=== PATIENT | male | born 1975 | race Two or more races ===

== ENCOUNTER 2017-07-04 10:03 | Emergency (ER) | payer OTHER, SELFPAY ==
[2017-07-04 10:08] VITALS: BP 118/78; PULSE 103; RESP 18; TEMP 37.6; O2SAT 95; BMI 22.6
--- NOTE | 2017-07-04 10:22 | HMH.EDGENADL ---
ED Disposition Clinical Impression: Acute bronchitis, Viral syndrome Disposition: Home, Self-Care Condition on Discharge: Good Additional Instructions: 1- The patient to start on antibiotic amoxicillin like the one his daughter used and gotten better. 2- He was given ibuprofen for body aches and Tessalon. Follow up with the primary care physician Dr. Hassan in the morning. 3-basic hygiene and use protective mask as he is the fourth person who gets sick in the family. 4-to return if not better. Prescriptions: Benzonatate [Tessalon Perle 100mg Cap] 100 mg PO Q4HP PRN #21 cap PRN Reason: Cough Ibuprofen [Motrin 600mg Tablet] 600 mg PO Q8HP PRN #21 tab PRN Reason: Moderate Pain Amoxicillin [Amoxicillin 500mg Cap] 500 mg PO TID #30 cap Referrals: Moises Hassan MD [Staff Physician] - - Critical Care Critical Care Time: No Attestation: On , the high probability of a clinically significant, sudden or life threatening deterioration of the following system(s) required my full and direct attention, intervention and personal management. The time I documented below is in addition to time spent performing reported procedures but includes the following listed in this critical care notation. Medical Decision Making - Medical Records Medical records reviewed: Yes: I reviewed the patient's medical records. Vital Signs: 07/04/17 10:08 Temperature 99.6 F Temperature Source Oral Pulse Rate [Right Brachial] 103 H Respiratory Rate 18 Blood Pressure [Right Arm] 118/78 Blood Pressure Mean [Right Arm] 91 Blood Pressure Source [Right Arm] Automatic Cuff Blood Pressure Position [Right Arm] Sitting 02 Sat by Pulse Oximetry 95 Oxygen Delivery Method Room Air - Ceasar Inquiry Pt receiving controlled substance: No Ceasar was queried for this patient: No Medical Decision Making Narrative: Had a discussion with the patient that this he is having what seems to be respiratory versus viral infection, it is past the effective period to use antiviral medication after 4 days of illness. Will cover him with antibiotics for secondary bacterial infection. He is to follow-up with a primary care physician [place] General Adult HPI - General Chief complaint: Shortness of Breath/Dyspnea Stated complaint: congested Mode of Arrival: Ambulatory Source of Information: Patient Limitations: No Limitations Description of Symptoms (Recalled from ER Triage Doc. 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 His daughter developed similar symptoms a week ago and she was seen by the deputy sheriff custody and was given antibiotics and she is getting better. He is the fourth person to get sick in the family . He started developing sinus congestion nonproductive cough and body aches 4 days ago. He denies having shortness of air, palpitations, hemoptysis, nausea, vomiting or diarrhea. He is here for antibiotics and cough medication. Onset (ago): day(s) (4 days.) Location: chest Severity: mild Quality: aching (Feels achy all over. ) Consistency: constant Relieving factors: other (Feels better with [id number] medications.) Exacerbating factors: none (Nonproductive cough. ) Associated symptoms: denies other symptoms (As described in HPI. ) - Related Data Previous Rx's Medication Instructions Recorded Amoxicillin [Amoxicillin 500mg 500 mg PO TID #30 cap 07/04/17 Cap] Benzonatate [Tessalon Perle 100mg 100 mg PO Q4HP PRN #21 cap 07/04/17 Cap] Ibuprofen [Motrin 600mg 600 mg PO Q8HP PRN #21 tab 07/04/17 Tablet] Allergies Allergy/AdvReac Type Severity Reaction Status Date / Time No Known Allergies Allergy Unverified 06/01/17 14:11 [facility] History I have reviewed the patient's past medical history: Yes - *Social History Smoking Status: Never smoker Alcohol Intake: never - Psychiatric History Expresses t
--- NOTE | 2017-07-04 10:25 | ED_ITS ---
ED Disposition Clinical Impression: Acute bronchitis, Viral syndrome Disposition: Home, Self-Care Condition on Discharge: Good Additional Instructions: 1- The patient to start on antibiotic amoxicillin like the one his daughter used and gotten better. 2- He was given ibuprofen for body aches and Tessalon. Follow up with the primary care physician Dr. Hassan in the morning. 3-basic hygiene and use protective mask as he is the fourth person who gets sick in the family. 4-to return if not better. Prescriptions: Benzonatate [Tessalon Perle 100mg Cap] 100 mg PO Q4HP PRN #21 cap PRN Reason: Cough Ibuprofen [Motrin 600mg Tablet] 600 mg PO Q8HP PRN #21 tab PRN Reason: Moderate Pain Amoxicillin [Amoxicillin 500mg Cap] 500 mg PO TID #30 cap Referrals: Moises Hassan MD [Staff Physician] - - Critical Care Critical Care Time: No Attestation: On , the high probability of a clinically significant, sudden or life threatening deterioration of the following system(s) required my full and direct attention, intervention and personal management. The time I documented below is in addition to time spent performing reported procedures but includes the following listed in this critical care notation. Medical Decision Making - Medical Records Medical records reviewed: Yes: I reviewed the patient's medical records. Vital Signs: 07/04/17 10:08 Temperature 99.6 F Temperature Source Oral Pulse Rate [Right Brachial] 103 H Respiratory Rate 18 Blood Pressure [Right Arm] 118/78 Blood Pressure Mean [Right Arm] 91 Blood Pressure Source [Right Arm] Automatic Cuff Blood Pressure Position [Right Arm] Sitting 02 Sat by Pulse Oximetry 95 Oxygen Delivery Method Room Air - Ceasar Inquiry Pt receiving controlled substance: No Ceasar was queried for this patient: No Medical Decision Making Narrative: Had a discussion with the patient that this he is having what seems to be respiratory versus viral infection, it is past the effective period to use antiviral medication after 4 days of illness. Will cover him with antibiotics for secondary bacterial infection. He is to follow-up with a primary care physician [place] General Adult HPI - General Chief complaint: Shortness of Breath/Dyspnea Stated complaint: congested Mode of Arrival: Ambulatory Source of Information: Patient Limitations: No Limitations Description of Symptoms (Recalled from ER Triage Doc. 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 His daughter developed similar symptoms a week ago and she was seen by the radiologic therapist and was given antibiotics and she is getting better. He is the fourth person to get sick in the family . He started developing sinus congestion nonproductive cough and body aches 4 days ago. He denies having shortness of air, palpitations, hemoptysis, nausea, vomiting or diarrhea. He is here for antibiotics and cough medication. Onset (ago): day(s) (4 days.) Location: chest Severity: mild Quality: aching (Feels achy all over. ) Consistency: constant Relieving factors: other (Feels better with [id number] medications.) Exacerbating factors: none (Nonproductive cough. ) Associated symptoms: denies other symptoms (As described in HPI. ) - Related Data Previous Rx's Medication Instructions Recorded Amoxicillin [A
== END 2017-07-04 10:45 | disposition home or self-care (01) ==
PROVIDERS: Emergency Provider Emergency Medicine
DX: J20.9 Acute bronchitis, unspecified (principal); B34.9 Viral infection, unspecified
CPT/HCPCS: 99282

== ENCOUNTER 2018-11-14 19:29 | Emergency (ER) | payer OTHER, SELFPAY ==
[2018-11-14 19:30] VITALS: BP 136/82; PULSE 71; RESP 16; TEMP 36.7; O2SAT 99; BMI 19.8
[2018-11-14 19:34] VITALS: BP 136/82; PULSE 71; RESP 16; TEMP 36.7; O2SAT 99; BMI 19.8
--- NOTE | 2018-11-14 20:15 | HMH.EDEYEP ---
ED Disposition Clinical Impression: Conjunctivitis Qualifiers: Conjunctivitis type: unspecified Laterality: bilateral Qualified Code(s): H10.9 - Unspecified conjunctivitis Disposition: Home, Self-Care Condition on Discharge: Good Instructions: DI for Eye Pain Additional Instructions: use eye drops and see eye center in [place] Referrals: Provider,Reji, [Primary Care Provider] - - Critical Care Critical Care Time: No Attestation: On 11/14/18, the high probability of a clinically significant, sudden or life threatening deterioration of the following system(s) required my full and direct attention, intervention and personal management. The time I documented below is in addition to time spent performing reported procedures but includes the following listed in this critical care notation. Medical Decision Making - Ceasar Inquiry Pt receiving controlled substance: No Vital Signs: 11/14/18 19:30 11/14/18 19:34 Temperature 98.0 F 98.0 F Temperature Source Oral Oral Pulse Rate [Right Brachial] 71 71 Respiratory Rate 16 16 Blood Pressure [Right Arm] 136/82 136/82 Blood Pressure Mean [Right Arm] 100 100 Blood Pressure Source [Right Arm] Manual Cuff/ Doppler Manual Cuff/ Doppler Blood Pressure Position [Right Arm] Sitting Sitting 02 Sat by Pulse Oximetry 99 99 Oxygen Delivery Method Room Air Room Air Eye Problem HPI - General Chief complaint: Eye Problems Stated complaint: both eyes red and hurting Time Seen by Provider: 11/14/18 20:00 Mode of Arrival: Ambulatory Source of Information: Patient Limitations: Language Barrier Description of Symptoms (Recalled from ER Triage Doc. by RN): pt states working with metal and metal pieces flew back hitting both eyes. pt states left eye is more painful than right - History of Present Illness HPI Narrative: possible fb lt eye with reddness - and sl itchy- no visual loss chief complaint: eye redness, foreign body Onset (ago): hour(s) Onset description: gradual Duration: constant Location: both eyes Eye Symptoms: foreign body sensation Place: home Mechanism: none Severity: moderate Treatments Prior to Arrival: none - Related Data Home Medications Medication Instructions Recorded Confirmed No Known Home Medications 11/14/18 11/14/18 Allergies Allergy/AdvReac Type Severity Reaction Status Date / Time No Known Allergies Allergy Unverified 06/01/17 14:11 [facility] History - Hepatitis A Screen Drug use history?: No High risk sexual behaviors?: No History of sexually transmitted infection?: No Currently employed?: No Childcare worker?: No Do you have indoor plumbing?: Yes Do you have electricity?: Yes Attestation statement:: This patient has been screened for Hepatitis A risk factors. I have reviewed the patient's past medical history: Yes Medical History: Denies:: Cancer, Diabetes Mellitus Type 1, Diabetes Mellitus Type 2, MRSA Amputation: No Fractures: No - Social History Smoking Status: Never smoker Alcohol Intake: never Occupational Status: employed Housing: house - Psychiatric History Expresses thoughts of harming self/others: None Suicide Plan Description: No Plan ROS Obtained: Yes All systems reviewed & no additional complaints - Constitutional Constitutional: Denies fever(s) - Eyes Eyes: Reports as per HPI, Denies change in vision - ENT Ears, Nose, Mouth, and Throat: Denies sore throat - Cardiovascular Cardiovascular: Denies chest pain - Respiratory Respiratory: No cough - Gastrointestinal Gastrointestingal: Denies: abdominal pain - Genitourinary Male Genitourinary: Denies hematuria - Musculoskeletal Musculoskeletal: Denies joint pain - Integumentary/Breasts Skin/Breast: Denies rash - Neurologic Neurologic: Denies seizure-like activity Physical Exam - General General appearance: alert - Head Head exam: normocephalic - Eye Eye exam: Present: PERRL, EOMI, conjunctival redness, o
--- NOTE | 2018-11-14 20:19 | ED_ITS ---
ED Disposition Clinical Impression: Conjunctivitis Qualifiers: Conjunctivitis type: unspecified Laterality: bilateral Qualified Code(s): H10.9 - Unspecified conjunctivitis Disposition: Home, Self-Care Condition on Discharge: Good Instructions: DI for Eye Pain Additional Instructions: use eye drops and see eye center in am Referrals: Provider,Reji, [Primary Care Provider] - - Critical Care Critical Care Time: No Attestation: On 11/14/18, the high probability of a clinically significant, sudden or life threatening deterioration of the following system(s) required my full and direct attention, intervention and personal management. The time I documented below is in addition to time spent performing reported procedures but includes the following listed in this critical care notation. Medical Decision Making - Ceasar Inquiry Pt receiving controlled substance: No Vital Signs: 11/14/18 19:30 11/14/18 19:34 Temperature 98.0 F 98.0 F Temperature Source Oral Oral Pulse Rate [Right Brachial] 71 71 Respiratory Rate 16 16 Blood Pressure [Right Arm] 136/82 136/82 Blood Pressure Mean [Right Arm] 100 100 Blood Pressure Source [Right Arm] Manual Cuff/ Doppler Manual Cuff/ Doppler Blood Pressure Position [Right Arm] Sitting Sitting 02 Sat by Pulse Oximetry 99 99 Oxygen Delivery Method Room Air Room Air Eye Problem HPI - General Chief complaint: Eye Problems Stated complaint: both eyes red and hurting Time Seen by Provider: 11/14/18 20:00 Mode of Arrival: Ambulatory Source of Information: Patient Limitations: Language Barrier Description of Symptoms (Recalled from ER Triage Doc. by RN): pt states working with metal and metal pieces flew back hitting both eyes. pt states left eye is more painful than right - History of Present Illness HPI Narrative: possible fb lt eye with reddness - and sl itchy- no visual loss chief complaint: eye redness, foreign body Onset (ago): hour(s) Onset description: gradual Duration: constant Location: both eyes Eye Symptoms: foreign body sensation Place: home Mechanism: none Severity: moderate Treatments Prior to Arrival: none - Related Data Home Medications Medication Instructions Recorded Confirmed No Known Home Medications 11/14/18 11/14/18 Allergies Allergy/AdvReac Type Severity Reaction Status Date / Time No Known Allergies Allergy Unverified 06/01/17 14:11 [facility] History - Hepatitis A Screen Drug use history?: No High risk sexual behaviors?: No History of sexually transmitted infection?: No Currently employed?: No Childcare worker?: No Do you have indoor plumbing?: Yes Do you have electricity?: Yes Attestation statement:: This patient has been screened for Hepatitis A risk factors. I have reviewed the patient's past medical history: Yes Medical History: Denies:: Cancer, Diabetes Mellitus Type 1, Diabetes Mellitus Type 2, MRSA Amputation: No Fractures: No - Social History Smoking Status: Never smoker Alcohol Intake: never Occupational Status: employed Housing: house - Psychiatric History Expresses thoughts of harming self/others: None Suicide Plan Description: No Plan ROS Obtained: Yes All systems reviewed
[2018-11-14 20:26] VITALS: BP 136/82; PULSE 84; RESP 15; TEMP 37; O2SAT 96
== END 2018-11-14 20:30 | disposition home or self-care (01) ==
PROVIDERS: Emergency Provider Emergency Medicine
DX: H10.33 Unspecified acute conjunctivitis, bilateral (principal)
CPT/HCPCS: 99282